=== PATIENT | female | born 1990 | race Caucasian/White ===

== ENCOUNTER 2018-03-09 17:03 | Inpatient (IN) | payer OTHER ==
[~2018-03-09] VITALS: Ht 149.9 cm; Wt 80.2 kg
[2018-03-10] MEDS ORDERED: ZANTAC 150MG T150 MG PO (00:46)
[2018-03-19] VITALS (62 sets, daily range): BP systolic 98–123; BP diastolic 51–81; PULSE 72–110; TEMP 97.2–98.2
[2018-03-19 08:06] LABS: BASO % 0.2 % (0.0-2.0); EOS # 0.1 (0.0-0.7); EOS % 1.3 % (0-4.0); GRAN # 6.3 (1.4-6.5); GRAN % 72.4 % (42.2-75.2); HEMOGLOBIN 10.9 g/dl (12.5-16.0); LYMPH # 1.8 (1.2-3.4); LYMPH % 20.3 % (20.0-51.0); MEAN CELL VOLUME 86 fl (80.0-100.0); MEAN CORPUSCULAR HEMOGLOBIN 29 pg (27.0-31.0); MEAN CORPUSCULAR HGB CONC 34 g/dl (33.0-37.0); MEAN PLATELET VOLUME 10.8 fl (7.4-10.4); MONO # 0.5 (0.1-0.6); MONO % 5.1 % (1.7-9.3); PLATELET COUNT 213 K/mm3 (130-400); RED BLOOD COUNT 3.72 M/mm3 (4.10-5.30)
[2018-03-19 08:08] LABS: HEMATOCRIT 32.1 % (37.0-47.0)
[2018-03-20] VITALS (7 sets, daily range): BP systolic 96–117; BP diastolic 65–89; PULSE 78–105; TEMP 97.5–98.4
[2018-03-20 08:03] LABS: HEMATOCRIT 33.8 % (37.0-47.0); HEMOGLOBIN 11.4 g/dl (12.5-16.0)
[2018-03-20] MEDS ORDERED: IBU600 MG PO (12:32)
[2018-03-20] MEDS ORDERED: PERCOCET 325 MG1 TA2 PO (12:32)
[2018-03-20] MEDS ORDERED: ZOLOFT 25MG25 MG PO (12:33)
[2018-03-21 07:30] VITALS: BP 130/78; PULSE 86; TEMP 97.9
== END 2018-03-21 12:25 | disposition home or self-care (01) | DRG 775 ==
LOC: OB 03-19 07:04 → LDR 03-19 07:04 → OB 03-19 23:57
PROVIDERS: Obstetrics & Gynecology
PROC: 10E0XZZ Delivery of Products of Conception, External Approach (ICD-10-PCS; principal; 2018-03-19)
PROC: 3E033VJ Introduction of Other Hormone into Peripheral Vein, Percutaneous Approach (ICD-10-PCS; 2018-03-19)
PROC: 10907ZC Drainage of Amniotic Fluid, Therapeutic from Products of Conception, Via Natural or Artificial Opening (ICD-10-PCS; 2018-03-19)
DX: O36.0930 Maternal care for other rhesus isoimmunization, third trimester, not applicable or unspecified (principal); Z3A.40 40 weeks gestation of pregnancy; Z37.0 Single live birth; O99.344 Other mental disorders complicating childbirth; F32.9 Major depressive disorder, single episode, unspecified
CPT/HCPCS: J1200; J2590; J2791; J2795; J7120

== ENCOUNTER 2018-03-10 00:15 | Outpatient (CLI) | payer OTHER ==
[~2018-03-10] VITALS: Ht 152.4 cm; Wt 79.5 kg
[2018-03-10 00:39] VITALS: BP 124/74; PULSE 92; TEMP 98.9
[2018-03-10] MEDS ORDERED: ZANTAC 150MG T150 MG PO (00:46)
[2018-03-10 01:58] VITALS: BP 129/71; PULSE 102
== END 2018-03-10 02:10 | disposition home or self-care (01) ==
LOC: LDRO 00:15
DX: O42.92 Full-term premature rupture of membranes, unspecified as to length of time between rupture and onset of labor (principal); Z3A.39 39 weeks gestation of pregnancy